=== PATIENT | female | born 1985 | race Caucasian/White ===

== ENCOUNTER → 2022-01-12 14:08 | Outpatient (CLI) | payer OTHER, SELFPAY ==
[2022-01-12 20:07] LABS: Urine N gonorrhoeae NOT DETECTED
[2022-01-12 20:10] LABS: Urine Chlamydia NOT DETECTED
== END ==
PROVIDERS: Visit Provider Obstetrics & Gynecology
DX: Z34.01 Encounter for supervision of normal first pregnancy, first trimester (principal)
CPT/HCPCS: 87491; 87591

== ENCOUNTER → 2022-01-25 11:47 | Outpatient (CLI) | payer OTHER, SELFPAY ==
[2022-01-25 12:42] LABS: Add Manual Diff / Slide Review NO; Basophils Absolute Auto 0 /uL (0-100); Basophils Percent Auto 0.4 % (0-2); Eosinophils Absolute Auto 0 /uL (0-450); Eosinophils Percent Auto 0.4 % (2-4); Hematocrit 37.5 % (36-46); Hemoglobin 12.9 g/dL (12.0-16.0); Lymphocytes Absolute Auto 1700 /uL (1100-4500); Lymphocytes Percent Auto 24.1 % (25-40); Mean Corpuscular HGB Conc 34.4 % (30-36); Mean Corpuscular Hemoglobin 31.7 PG (26-34); Mean Corpuscular Volume 92.2 fL (80-100); Monocytes Absolute Auto 300 /uL (0-900); Monocytes Percent Auto 4.1 % (3-14); Neutrophils Absolute Auto 5100 /uL (1500-7000); Platelet Count 257 X10^3/uL (150-400); Red Blood Cell Count 4.07 X10^6/uL (4.0-5.2); Red Cell Distribution Width 12.2 % (11.6-14.8); White Blood Cell Count 7.2 X10^3/uL (4.5-11.0)
[2022-01-25 13:58] LABS: Alanine Aminotransferase 25 IU/L (<35); Albumin 4.3 g/dL (3.5-5.0); Albumin Globulin Ratio 1.4 (1.0-2.8); Alkaline Phosphatase 45 U/L (38-126); Aspartate Aminotransferase 21 IU/L (14-36); BUN Creatinine Ratio 22.1 (6-22); Bilirubin Total 0.5 mg/dL (0.2-1.3); Blood Urea Nitrogen 15 mg/dL (7-17); Carbon Dioxide 25 mmol/L (22-32); Chloride 99 mmol/L (98-107); Estimated Glomerular Filt Rate > 60 mL/min (>60); Glucose 82 mg/dL (70-100); HEMOLYSIS < 15 (0-50); Lactate Dehydrogenase 388 U/L (313-618); Potassium 4.1 mmol/L (3.4-5.1); Sodium 131 mmol/L (137-145); Total Protein 7.3 g/dL (6.3-8.2); Uric Acid 3.4 mg/dL (2.5-6.2)
[2022-01-25 14:13] LABS: Appearance Urine UA CLEAR; Bilirubin Urine UA NEGATIVE (NEGATIVE); Color Urine UA YELLOW; Glucose Urine UA NEGATIVE (Negative); Ketones Urine UA NEGATIVE (NEGATIVE); Leukocyte Esterase Urine UA NEGATIVE (NEGATIVE); Nitrite Urine UA NEGATIVE (Negative); Occult Blood Urine UA TRACE-INTACT (Negative); Protein Urine UA NEGATIVE (Negative); Specific Gravity Urine UA <=1.005 (1.000-1.035); Urobilinogen Urine UA 0.2 E.U./dL (0.2)
[2022-01-25 14:19] LABS: pH Urine UA 6.5 (4.5-8.0)
[2022-01-25 15:23] LABS: Creatinine Urine Random 11.6 mg/dL; Protein (Total) Urine Random 11 mg/dL (0-12); Protein Creatinine Ratio Urine 0.94 GRAM/24H
[2022-01-25 15:47] LABS: Hepatitis B Surface Antigen NEGATIVE s/c (NEGATIVE)
[2022-01-25 15:48] LABS: Rubella Antibody IgG 92.6 IU/mL (>15)
[2022-01-25 15:57] LABS: HIV 1 & 2 Ab/Ag 4th Gen Combo NEGATIVE (NEGATIVE); Hep C Virus Ab w/Reflex Quant NEGATIVE s/c (NEGATIVE)
[2022-01-26 08:28] LABS: RPR Screen Non Reactive (Non Reactive); Varicella IgG Antibody 1892 index (Immune >165)
== END ==
PROVIDERS: PCP Nurse Practitioner Family; Referring Provider Obstetrics & Gynecology; Visit Provider Obstetrics & Gynecology
DX: O09.511 Supervision of elderly primigravida, first trimester (principal)
CPT/HCPCS: 36415; 80053; 80055; 81003; 82570; 83615; 84156; 84550; 86787; 86803; 86850; 86900; 86901; 87086; 87389

== ENCOUNTER → 2022-03-14 17:02 | Outpatient (CLI) | payer OTHER, SELFPAY ==
[2022-03-16 22:07] LABS: AFP Value 34.4 ng/mL (.); Gest Age on Col Date 17.6 weeks (.); Insulin Dep Diabetes No (.); OSBR Risk 1IN 10000 (.); Results Report (.); Test Results *Screen Negative* (.)
== END ==
PROVIDERS: Referring Provider Obstetrics & Gynecology; Visit Provider Obstetrics & Gynecology
DX: Z34.92 Encounter for supervision of normal pregnancy, unspecified, second trimester (principal)
CPT/HCPCS: 36415; 82105

== ENCOUNTER → 2022-04-03 07:46 | Outpatient (CLI) | payer OTHER, SELFPAY ==
--- NOTE | 2022-04-03 07:48 | DI.US.S_ITS ---
PROCEDURE: US OB >= 14 WEEKS FETUS INDICATIONS: ANATOMY OUTSIDE/PRIOR DATING DATA: Last menstrual period (LMP): Not applicable First dating scan (date and location): 01/12/2022 Estimated date of delivery (ZOE) from first dating scan: 08/17/2022 TECHNIQUE: Real-time scanning was performed of the fetus, with image documentation and biometric measurements. Endovaginal scanning: Not performed COMPARISON: [facility], US, US OB <= 14 WEEKS FETUS, 01/12/2022, 15:17. 01/12/2022 FINDINGS: General: A single living intrauterine gestation is present. Presentation: Vertex Placenta: Anterior, without previa Amniotic fluid index: 12.7 cm heart rate: 160 beats per minute Maternal cervical canal: 4.4 cm biometrics: Biparietal diameter: 5.2 cm Head circumference: 18.6 cm Abdominal circumference: 16.7 cm Femur length: 3.4 cm Clinically estimated gestational age: 20 weeks and 4 days Composite gestational age from present scan: 21 weeks and 2 days Estimated weight and percentile: 407 g, 79th percentile Anatomic survey: Neuro: Ventricles are non-dilated at less than 10 mm. Cisterna magna is normal at 3-11 mm. Cerebellum is normal in size and morphology. Nuchal skin fold: Normal at less than 6 mm between 14-21 weeks gestational age. Face: Nose and lips, facial profile are normal. Spine: No evidence for spina bifida. Heart: 4-chambered heart is present, with normal ventricular outflow tracts. Diaphragm: Diaphragm is intact. Stomach: Left-sided stomach is present. Kidneys: No hydronephrosis. Normal is less than 5 mm in 2nd trimester, less than 7 mm in 3rd trimester. Cord: 3-vessel cord has orthotopic insertion. Bladder: Normal in size. Extremities: All 4 extremities identified. IMPRESSION: Living intrauterine gestation at 20 weeks and 4 days by initial ultrasound. Biometry today is concordant, with EFW at the 79th percentile. Normal and complete routine anatomic survey. We strive to produce accurate, complete, and clear reports of imaging services. To assist us in improving patient care, this report was composed using standard report templates and voice recognition software. Therefore, it may contain abnormal punctuation, insertions and/or omissions. Occasional wrong-word or sound-alike substitutions may occur. Though we review the report and make efforts to correct it, we do recommend that the report be read carefully in proper context to recognize any text inaccuracies. Dictated by: Alberto Dumont M.D. on 04/03/2022 at 9:35 Approved by: Alberto Dumont M.D. on 04/03/2022 at 9:40
== END ==
PROVIDERS: Referring Provider Obstetrics & Gynecology; Visit Provider Obstetrics & Gynecology
DX: Z34.02 Encounter for supervision of normal first pregnancy, second trimester (principal); Z3A.20 20 weeks gestation of pregnancy
CPT/HCPCS: 76811

== ENCOUNTER → 2022-04-10 08:44 | Outpatient (CLI) | payer OTHER, SELFPAY | PROVIDERS: Referring Provider Obstetrics & Gynecology; Visit Provider Obstetrics & Gynecology | DX: O36.8390 Maternal care for abnormalities of the fetal heart rate or rhythm, unspecified trimester, not applicable or unspecified (principal) | CPT/HCPCS: 36415; 84443 ==

== ENCOUNTER 2022-04-24 17:24 | Outpatient (CLI) | payer OTHER, SELFPAY | END 2022-04-24 18:05 | disposition home or self-care (01) | LOC: OB 04-25 08:27 | PROVIDERS: Referring Provider Obstetrics & Gynecology; Visit Provider Obstetrics & Gynecology | DX: O36.8320 Maternal care for abnormalities of the fetal heart rate or rhythm, second trimester, not applicable or unspecified (principal); Z3A.23 23 weeks gestation of pregnancy | CPT/HCPCS: 59025; G0378; G0379 ==

== ENCOUNTER → 2022-05-23 10:39 | Outpatient (CLI) | payer OTHER, SELFPAY ==
[2022-05-23 13:44] LABS: Hematocrit 35.4 % (36-46); Hemoglobin 12.2 g/dL (12.0-16.0)
[2022-05-23 13:55] LABS: GTT (PREG) 1 Hour PP 50gm Dose 90 mg/dL (76-139)
== END ==
PROVIDERS: Referring Provider Obstetrics & Gynecology; Visit Provider Obstetrics & Gynecology
DX: Z34.02 Encounter for supervision of normal first pregnancy, second trimester (principal); Z3A.26 26 weeks gestation of pregnancy
CPT/HCPCS: 36415; 82950; 85014; 85018

== ENCOUNTER → 2022-06-20 08:54 | Outpatient (CLI) | payer OTHER, SELFPAY ==
--- NOTE | 2022-06-20 08:55 | DI.US.S_ITS ---
PROCEDURE: US OB FOLLOW UP INDICATIONS: EFW OUTSIDE/PRIOR DATING DATA: Last menstrual period (LMP): Unknown LMP-based estimated date of delivery (ZOE): Unknown First dating scan (date and location): 01/12/2022 Estimated date of delivery (ZOE) from first dating scan: 08/17/2022 The calculations are made using the ultrasound ZOE of 08/17/2022. TECHNIQUE: Real-time scanning was performed of the fetus, with image documentation and biometric measurements. Endovaginal scanning: Not performed. COMPARISON: [facility], , OB >= 14 WEEKS FETUS, 04/03/2022, 8:05. FINDINGS: General: A single living intrauterine gestation is present. Presentation: Vertex Placenta: Placental position is anterior, without previa. Amniotic fluid index: 21.5 cm, normal range is 5-24 cm. Single deepest vertical pocket is 7.2 cm. heart rate: 163 beats per minute. Maternal cervical canal: 3.1 cm long. Normal lower limit is 2.5 cm. biometrics: Biparietal diameter: 8.1 cm, 32 weeks 3 days Head circumference: 29.1 cm, 32 weeks 0 days Abdominal circumference: 29.3 cm, 33 weeks 2 days Femur length: 6.1 cm, 31 weeks 6 days Clinically estimated gestational age: 31 weeks 5 days Composite gestational age from present scan: 32 weeks 3 days Estimated weight and percentile: 2023 grams, 70th percentile for gestational age Other: Not applicable. IMPRESSION: 1. Single live intrauterine with appropriate interval growth. 2. Estimated weight is 2023 grams, 78th percentile for gestational age. 3. Amniotic fluid index is 21.5 cm. We strive to produce accurate, complete, and clear reports of imaging services. To assist us in improving patient care, this report was composed using standard report templates and voice recognition software. Therefore, it may contain abnormal punctuation, insertions and/or omissions. Occasional wrong-word or sound-alike substitutions may occur. Though we review the report and make efforts to correct it, we do recommend that the report be read carefully in proper context to recognize any text inaccuracies. Approved by: Cruz Grey M.D. on 06/20/2022 at 10:48
== END ==
PROVIDERS: Referring Provider Obstetrics & Gynecology; Visit Provider Obstetrics & Gynecology
DX: O09.523 Supervision of elderly multigravida, third trimester (principal); Z3A.32 32 weeks gestation of pregnancy
CPT/HCPCS: 76816

== ENCOUNTER 2022-07-09 15:08 | Inpatient (IN) | payer OTHER, SELFPAY ==
[2022-07-09 16:57] LABS: Appearance Urine UA CLEAR; Bilirubin Urine UA NEGATIVE (NEGATIVE); Color Urine UA YELLOW; Glucose Urine UA NEGATIVE (Negative); Ketones Urine UA NEGATIVE (NEGATIVE); Leukocyte Esterase Urine UA TRACE (NEGATIVE); Nitrite Urine UA NEGATIVE (Negative); Occult Blood Urine UA NEGATIVE (Negative); Protein Urine UA NEGATIVE (Negative); Specific Gravity Urine UA <=1.005 (1.000-1.035); Urobilinogen Urine UA 0.2 E.U./dL (0.2)
--- NOTE | 2022-07-09 17:09 | DI.US.S_ITS ---
PROCEDURE: US OB LIMITED INDICATIONS: FALL. EVALUATE PLACENTA. TECHNIQUE: Real-time scanning was performed of the fetus, with image documentation. COMPARISON: [facility], , OB FOLLOW UP, 06/20/2022, 8:58. FINDINGS: A single living intrauterine gestation is present. Presentation: Vertex. Placenta: Placental position is anterior, without previa. Amniotic fluid index: 15.8 cm, normal range is 5-24 cm. Single deepest vertical pocket is 6.8 cm. heart rate: 150 beats per minute. Maternal cervical canal: 2.6 cm long. Normal lower limit is 2.5 cm. The cervix has a complex fluid collection measuring 1.8 x 1.5 cm. Clinically estimated gestational age: 34 weeks 3 days IMPRESSION: 1. Single live intrauterine . 2. Amniotic fluid index is normal measuring 15.8 cm. 3. Heterogenous irregular complex fluid collection within the placenta to the left of the maternal umbilicus measuring 3.3 x 1.1 x 1.0 cm. Possibly placental lakes, however these were not previously present. Given history of trauma, must consider a placental hemorrhage. Recommend follow-up imaging. 4. The cervix measures 2.6 cm in length. There is a complex fluid collection measuring 1.8 x 1.5 x 1.0 cm not previously present. Given history of trauma, most consider hemorrhage. Recommend follow-up imaging. Dictated by: Jr Machado M.D. on 07/09/2022 at 19:09 Approved by: Jr Machado M.D. on 07/09/2022 at 19:16
[2022-07-09 17:27] LABS: Bacteria Urine None Seen; Culture Indicated Urine Cult Not Indicated; RBC Urine None Seen (0-5/HPF); Squamous Epithelial Cell Urine None Seen (0-5/HPF); WBC Urine 0-1/HPF (0-5/HPF)
--- NOTE | 2022-07-09 17:48 | P.TNLD_ITS ---
[facility] Medical History (Updated 02/11/22 @ 16:59 by Sonia Issa) Chicken pox (~1987) Eczema (~2014) Fractures (~1999) Shingles (~2003) Surgical History (Updated 02/11/22 @ 16:59 by Sonia Issa) Anesthesia H/O shoulder surgery (~2007) History of ankle surgery (~2012) History of knee surgery S/P ASA/PRK (advanced surface ablation photorefractive keratectomy) (~2017) [place] teeth extracted Family History (Updated 02/11/22 @ 17:00 by Sonia Issa) Mother Melanoma Squamous cell carcinoma Father Psoriatic arthritis Lupus Family/Other Diabetes mellitus Grandfather Glaucoma Diverticulitis Social History marital status: number of children: 0 household members: spouse lives independently: Yes housing: condominium pets and animals: Yes (1 dog ) education level: college occupational status: employed current occupational exposures/hazards: No special ev needs: No travel history: over 6 months ago seatbelt use: always water heater temp set < 120 deg: No (Will check and adjust ) working smoke detector in home: Yes fire extinguisher in home: No carbon monox detector in home: Yes firearms in home: No do you feel safe at home: Yes Smoking Status: Never smoker second hand exposure: No alcohol intake: former substance use type: does not use during the past year weight has: decreased > 10 lbs well-balanced diet: daily or most days daily servings fruits/ve-4 caffeine: No Type(s) of exercise: weight lifting and running frequency: 3-4 times per week Objective Labs Result Diagrams: 07/09/22 19:42 Labs: Laboratory Results - last 24 hr 07/09/22 16:14 Urine Color Yellow Urine Appearance Clear Urine pH 6.0 Ur Specific [place] <=1.005 Urine Protein Negative Urine Glucose (UA) Negative Urine Ketones Negative Urine Occult Blood Negative Urine Nitrate Negative Urine Bilirubin Negative Urine Urobilinogen 0.2 Ur Leukocyte Esterase Trace H Urine RBC None seen Urine WBC 0-1/hpf Ur Squamous Epith Cells None seen Urine Bacteria None seen Ur Culture Indicated? Cult not indicated
[2022-07-09 20:09] LABS: Hematocrit 35.7 % (36-46); Hemoglobin 12.2 g/dL (12.0-16.0); Mean Corpuscular HGB Conc 34.2 % (30-36); Mean Corpuscular Hemoglobin 32.3 PG (26-34); Mean Corpuscular Volume 94.4 fL (80-100); Platelet Count 207 X10^3/uL (150-400); Red Blood Cell Count 3.78 X10^6/uL (4.0-5.2); Red Cell Distribution Width 12.8 % (11.6-14.8); White Blood Cell Count 10.1 X10^3/uL (4.5-11.0)
[2022-07-09 20:19] LABS: Fibrinogen 445 mg/dL (211-428)
--- NOTE | 2022-07-09 21:44 | PM.OBHP.IH.1 ---
OB HPI Date/Time Date of admission: 07/09/22 Date Patient Seen: 07/09/22 Time Patient Seen: 17:50 History of Present Condition Chief complaint: FELL ZOE Calculator Estimated Delivery Date Method Current WG Current Estimate 08/18/22 LMP (Certain) 34w 2d Other Estimates 08/17/22 Ultrasound #1 34w 3d Estimated Gestational Age (weeks): 34 : 1 Para: 0 Narrative: 37 yo G1 female @ 34wk2d presents after a hard fall onto her abdomen. She was taking her young dog out for a walk when the dog pulled hard on the leash and she fell onto her right side and right abdomen. She also mildly twisted her ankle. She called the office and was brought in for evaluation. She reports some initial discomfort on the right side of her abdomen and uterus, which now esolved after her presentation here. No current abdominal pain. She does not feel any contractions. Denies Vaginal bleeding or leakage of fluid. She is feeling good movement. complicated by auscultating frequent ectopy, persistent from 21-23 weeks. She had MFM evaluation at which time no ectopy was present on NST. anatomy ultrasound by [facility] was normal. echocardiogram showed a small VSD, otherwise normal. Diagnosis was PACs. on follow-up visits initially only rare ectopic beats auscultated, then no further ectopy heard. Recommendation for the VSD was if a murmur was auscultated on exam post delivery, then referral to a climbing guide within 2-4 weeks. She has had growth ultrasounds due to advanced maternal age. EFW at 31 weeks was 70 percentile. She had a low risk cell free DNA, boy. care: good care Dating criteria OB: LMP confirmed by 1st trimester US Ultrasounds: normal 1st trimester US, normal mid trimester US and other (31 week US EFW 70%) Obstetrical complications: other ( HR ectopy, infrequent now, probable PACs on evaluation/ ECHO: small VSD) Medical complications OB: none Indications Indication for induction OB: other (s/p abdominal trauma. US with area possible blood, possible abruption) Preadmission Labs Last OB Lab Results: Blood Type A Positive 01/25/22 11:54 Antibody Screen Negative 01/25/22 11:54 Hematocrit 35.7 % (36-46) L 07/09/22 19:42 Hemoglobin 12.2 g/dL (12.0-16.0) 07/09/22 19:42 Hepatitis B Surface Antigen Negative s/c (NEGATIVE) 01/25/22 11:54 Hepatitis C Antibody Negative s/c (NEGATIVE) 01/25/22 11:54 Rubella Antibody 92.6 IU/mL (>15) 01/25/22 11:54 Varicella-Zoster IgG Antibody 1892 index (Immune >165) 01/25/22 11:54 Glucose 1 Hour 90 mg/dL (76-139) 05/23/22 11:03 -: Chlamydia screen: negative and Gonorrhea screen: negative -: PAP smear: Normal (12/2021) Genetic Screens: Cell-free DNA: Normal (low risk, boy) and Alpha-fetoprotein: Normal Evaluation Evaluation Baseline heart rate: 145 Variability: Moderate (11-25) monitor accelerations: Present Monitor Decelerations: Absent Contraction Frequency (minutes): 8 Uterine Contraction Intensity: Mild Category of Tracing: Reactive Status: Category l Comments: cervix on US 2.6cm long. Not checked on vaginal exam, pt not feeling contractions See OB US report [facility] Medical History Chicken pox (~1987) Eczema (~2014) Fractures (~1999) Shingles (~2003) Surgical History (Updated 02/11/22 @ 16:59 by Sonia Issa) Anesthesia H/O shoulder surgery (~2007) History of ankle surgery (~2012) History of knee surgery S/P ASA/PRK (advanced surface ablation photorefractive keratectomy) (~2017) [place] teeth extracted Family History (Updated 02/11/22 @ 17:00 by Sonia Issa) Mother Melanoma Squamous cell carcinoma Father Psoriatic arthritis Lupus Family/Other Diabetes mellitus Grandfather Glaucoma Diverticulitis Social History marital status: number of children: 0 household members: spouse lives independently: Yes housing: condominium pets and animals: Yes (1 dog ) education level: college occupational status: employed current occupational exposures/hazards: No special ev needs: No travel history: over 6 months ago seatbelt use: always water heater temp set < 120 deg: No (Will check and adjust ) working smoke detector in home: Yes fire extinguisher in home: No carbon monox detector in home: Yes firearms in home: No do you feel safe at home: Yes Smoking Status: Never smoker second hand exposure: No alcohol intake: former substance use type: does not use during the past year weight has: decreased > 10 lbs well-balanced diet: daily or most days daily servings fruits/ve-4 caffeine: No Type(s) of exercise: weight lifting and running frequency: 3-4 times per week Meds Home Medications and Allergies Home Medications Medication Instructions Recorded Confirmed Type prenat.vits,wily,nzs-hzch-gefea 1 tab PO DAILY 12/28/21 07/04/22 History Double Electric Breast Pump #1 ea 06/20/22 07/04/22 Rx Allergies Allergy/AdvReac Type Severity Reaction Status Date / Time No Known Drug Allergies Allergy Unverified 07/04/22 08:14 Review of Systems Constitutional Constitutional: Reports as per HPI OB Exam HENMT Head: normal to inspection Resp Effort & Inspection: normal respiratory effort and able to speak in complete sentences Cardio Rate: regular rate Extremities Lower extremity: Yes normal to inspection ( no edema, mildly tender left inner ankle near arch) GI Inspection: normal to inspection and no abdominal wall ecchymosis Palpation: Yes soft, No firm, No guarding, No tender and Yes other (uterus nontender) Objective Imaging OB US: Radiologist's impression: PROCEDURE:? US OB LIMITED ? INDICATIONS:? FALL. EVALUATE PLACENTA. ? TECHNIQUE: Real-time scanning was performed of the fetus, with image documentation.? ? COMPARISON:? [facility], OB FOLLOW UP, 06/20/2022, 8:58. ? FINDINGS:? A single living intrauterine gestation is present.? Presentation:? Vertex.? Placenta:? Placental position is anterior, without previa.? ? Amniotic fluid index:? 15.8 cm, normal range is 5-24 cm. Single deepest vertical pocket is 6.8 cm.? ? heart rate:? 150 beats per minute.? Maternal cervical canal:? 2.6 cm long.? Normal lower limit is 2.5 cm.? The cervix has a complex fluid collection measuring 1.8 x 1.5 cm. Clinically estimated gestational age:? 34 weeks 3 days ? ? IMPRESSION:? 1. Single live intrauterine . 2. Amniotic fluid index is normal measuring 15.8 cm. 3. Heterogenous irregular complex fluid collection within the placenta to the left of the maternal umbilicus measuring 3.3 x 1.1 x 1.0 cm.? Possibly placental lakes, however these were not previously present.? Given history of trauma, must consider a placental hemorrhage.? Recommend follow-up imaging. 4. The cervix measures 2.6 cm in length.? There is a complex fluid collection measuring 1.8 x 1.5 x 1.0 cm not previously present.? Given history of trauma, most consider hemorrhage.? Recommend follow-up imaging Labs Result Diagrams: 07/09/22 19:42 Labs: Laboratory Results - last 24 hr 07/09/22 07/09/22 07/09/22 16:14 19:42 19:42 WBC 10.1 RBC 3.78 L Hgb 12.2 Hct 35.7 L MCV 94.4 MCH 32.3 MCHC 34.2 RDW 12.8 Plt Count 207 Fibrinogen 445 H Urine Color Yellow Urine Appearance Clear Urine pH 6.0 Ur Specific [place] <=1.005 Urine Protein Negative Urine Glucose (UA) Negative Urine Ketones Negative Urine Occult Blood Negative Urine Nitrate Negative Urine Bilirubin Negative Urine Urobilinogen 0.2 Ur Leukocyte Esterase Trace H Urine RBC None seen Urine WBC 0-1/hpf Ur Squamous Epith Cells None seen Urine Bacteria None seen Ur Culture Indicated? Cult not indicated Assessment and Plan Assessment and Plan Assessment and Plan narrative: 37 yo G1 @ EGA 34wk2d status post fall with possible concealed abruption. Rh+ - US shows heterogeneous fluid collection within the placenta, possible placental hemorrhage. Ultrasound 3 weeks ago did not have this finding. Also fluid collection in the cervix consistent with possible hemorrhage. no other definitive signs of abruption at this time, but she is persisting with christie every 7-9 minutes. Initially on presentation she also had low-grade irritability every 1 minute, occasionally has low-grade irritability every 3-4 minutes. Contractions are not painful but are not resolving. No other suspicious signs, contractions are not painful, no abdominal tenderness, no vaginal bleeding. However with ultrasound and with contractions not resolving, concern for possible concealed partial abruption. - labs showed normal platelets, normal fibrinogen, no signs of a large abruption at this time. Plan: Recommend inpatient observation with EFM/toco for possible abruption. Recommend transfer to a hospital with availability of a nursery for 34 week infant, in case she progresses to symptomatic abruption. Could consider repeat ultrasound if contractions resolve. She agrees to transfer. Dr. Robyn Henley from [facility] agrees to accept transfer the patient.
[2022-07-09] MEDS: LACTATED RINGERS 500 ML 21 ML IV (22:22)
[2022-07-09 22:42] LABS: COVID19 -Nasal RAPID Negative (Negative)
[2022-07-09] MEDS: ACETAMINOPHEN 325 MG TABLET 650 MG PO (22:43)
== END 2022-07-09 23:15 | disposition home or self-care (01) | DRG 833 ==
PROVIDERS: Admitting Provider Obstetrics & Gynecology; Referring Provider Obstetrics & Gynecology; Visit Provider Obstetrics & Gynecology
DX: O45.93 Premature separation of placenta, unspecified, third trimester (principal); Z3A.34 34 weeks gestation of pregnancy; O09.523 Supervision of elderly multigravida, third trimester; W18.09XA Striking against other object with subsequent fall, initial encounter; Y93.K1 Activity, walking an animal; Z67.10 Type A blood, Rh positive; Z20.822 Contact with and (suspected) exposure to COVID-19
CPT/HCPCS: 59025; 59050; 76815; 76830; 81001; 85027; 85384; 87635; 99235; C9803; G0378; G0379

== ENCOUNTER 2022-07-18 09:16 | Outpatient (CLI) | payer OTHER, SELFPAY | END 2022-07-18 10:00 | disposition home or self-care (01) | LOC: LABOR 09:49 → OB 07-23 08:44 | PROVIDERS: Referring Provider Obstetrics & Gynecology; Visit Provider Obstetrics & Gynecology | DX: O09.513 Supervision of elderly primigravida, third trimester (principal); Z3A.35 35 weeks gestation of pregnancy | CPT/HCPCS: 59025; G0378; G0379 ==

== ENCOUNTER → 2022-07-25 08:05 | Outpatient (CLI) | payer OTHER, SELFPAY ==
[2022-07-26 11:31] LABS: Strep Grp B PCR POS for Grp B Strep
== END ==
PROVIDERS: Visit Provider Obstetrics & Gynecology
DX: Z34.03 Encounter for supervision of normal first pregnancy, third trimester (principal); Z3A.36 36 weeks gestation of pregnancy
CPT/HCPCS: 87653

== ENCOUNTER 2022-08-01 08:21 | Outpatient (CLI) | payer OTHER, SELFPAY | END 2022-08-01 09:53 | disposition home or self-care (01) | LOC: LABOR 08:34 → OB 08-02 16:05 | PROVIDERS: Referring Provider Obstetrics & Gynecology; Visit Provider Obstetrics & Gynecology | DX: O36.8130 Decreased fetal movements, third trimester, not applicable or unspecified (principal); Z3A.37 37 weeks gestation of pregnancy | CPT/HCPCS: 59025; G0378; G0379 ==

== ENCOUNTER 2022-08-13 18:49 | Inpatient (IN) | payer OTHER, SELFPAY ==
[2022-08-13 19:14] VITALS: BP 109/72
[2022-08-13] MEDS: DINOPROSTONE VAG (CERVIDIL) 10 MG VAG (20:26)
[2022-08-13 20:52] LABS: Add Manual Diff / Slide Review NO; Basophils Absolute Auto 0 /uL (0-100); Basophils Percent Auto 0.3 % (0-2); Eosinophils Absolute Auto 0 /uL (0-450); Eosinophils Percent Auto 0.4 % (2-4); Hematocrit 36.2 % (36-46); Hemoglobin 12.4 g/dL (12.0-16.0); Lymphocytes Absolute Auto 1900 /uL (1100-4500); Lymphocytes Percent Auto 18.3 % (25-40); Mean Corpuscular HGB Conc 34.4 % (30-36); Mean Corpuscular Hemoglobin 32.3 PG (26-34); Monocytes Absolute Auto 500 /uL (0-900); Monocytes Percent Auto 4.9 % (3-14); Neutrophils Absolute Auto 7900 /uL (1500-7000); Neutrophils Percent Auto 76.1 % (50-75); Platelet Count 223 X10^3/uL (150-400); Red Blood Cell Count 3.85 X10^6/uL (4.0-5.2); Red Cell Distribution Width 12.7 % (11.6-14.8); White Blood Cell Count 10.4 X10^3/uL (4.5-11.0)
[2022-08-13 21:41] LABS: COVID19 -Nasal RAPID Negative (Negative)
[2022-08-14] MEDS: miSOPROStoL 100 MCG TABLET 50 MCG PO ×3 (09:13→18:54)
--- NOTE | 2022-08-14 09:53 | P.HPOB_ITS ---
OB HPI Date/Time Date of admission: 08/13/22 Date Patient Seen: 08/14/22 Time Patient Seen: 08:35 History of Present Condition Chief complaint: ZOE Calculator Estimated Delivery Date Method Current WG Current Estimate 08/18/22 LMP (Certain) 39w 3d Other Estimates 08/17/22 Ultrasound #1 39w 4d Estimated Gestational Age (weeks): 39 : 1 Narrative: 37 yo G1 female being admit at 39 wks for induction of labor due to possible hematoma, small abruption in placenta s/p fall on abdomen at 34 weeks and for advanced maternal age. complicated by auscultating frequent ectopy,? persistent from 21-23 weeks. ? She had M evaluation at which time no ectopy present on NST in MFM office.? anatomy ultrasound by [facility] was normal.? echocardiogram showed a small VSD, otherwise normal cardiac anatomy.? Diagnosis was PACs.?On follow-up visits initially only rare ectopic beats auscultated, then no further ectopy heard.?On NSTs or monitoring for other reasons, occasional ectopy seen on EFM. Recommendation for the VSD was if a heart murmur?was auscultated on exam of the baby post delivery, then referral to a pediatric physical therapy assistant within 2-4 weeks. At 34 weeks the patient had a hard fall onto her abdomen, with abdominal discomfort. EFM/ toco showed frequent uterine irritability every 1 minutes and subsequent contractions every 7 minutes. Ultrasound showed 3.3 cm irregular fluid collection in left anterior placenta, possible placental arvizu but with not being seen 3 weeks prior and with a new 1.8 cm fluid collection near the cervix, could be possible hemorrhage, possible small abruption. Patient was observed > 24 hours and contractions did not become more frequent than every 7 minutes and were painless. She did not have any vaginal bleeding or leakage of fluid. She was discharged to home to return with any increased symptoms. Gradually her contractions did space. Follow-up ultrasound at 37 weeks showed stable area within the placenta, p ossible placental arvizu. Efw 83%, [place] 21. Ultrasounds: normal 1st trimester US, normal mid trimester US and abnormal US findings ( echo mid 2nd trimester showed small VSD. At 34 wks s/p fall on abdomen 3.3x1.1x1 cm irregular fluid collection anterior left placenta, possible placental lakes but not present 3 wks prior and 1.8 cm fluid collection near cervix, consider hemorrhage s/p fall) Obstetrical complications: other ( trauma to abdomen at 34 weeks as above. frequent ectopy as above, improved to occasional. Smal VSD) Medical complications OB: none Indications Indication for induction OB: other ( Possible small anterior placental abrupt ion status post fall; advanced maternal age) Preadmission Labs Last OB Lab Results: Blood Type A Positive 08/13/22 19:13 Antibody Screen Negative 08/13/22 19:13 Hematocrit 36.2 % (36-46) 08/13/22 23:59 Hemoglobin 12.4 g/dL (12.0-16.0) 08/13/22 23:59 Hepatitis B Surface Antigen Negative s/c (NEGATIVE) 01/25/22 11 :54 Hepatitis C Antibody Negative s/c (NEGATIVE) 01/25/22 11:54 Rubella Antibody 92.6 IU/mL (>15) 01/25/22 11:54 Varicella-Zoster IgG Antibody 1892 index (Immune >165) 01/25/22 11:54 Glucose 1 Hour 90 mg/dL (76-139) 05/23/22 11:03 Group B Streptococcus (PCR) Pos for grp b strep H 07/25/22 08:0 5 -: Chlamydia screen: negative and Gonorrhea screen: negative -: PAP smear: Normal (12/2021) Genetic Screens: Cell-free DNA: Normal and Alpha-fetoprotein: Normal Evaluation Evaluation Baseline heart rate: 130 Variability: Moderate (11-25) monitor accelerations: Present Monitor Decelerations: Absent Contraction Frequency (minutes): 10 Uterine Contraction Intensity: Mild Category of Tracing: Reactive Status: Category l Dilation (cm): 0 Effacement (%): 20 Dilation: Closed Effacement: 0-30% station: -3 Position of cervix: posterior Consistency: medium Garza score: 1 Comments: Cervidil removed. Cervix on placement last pm ftp/30% per RN exam, no change this am. Cervidil noted to be in distal 1/3 vagina on removal, not near cervix. COUNT INCLUDES THE [facility] Medical History Chicken pox (~1987) Eczema (~2014) Fractures (~1999) Shingles (~2003) Surgical History (Updated 02/11/22 @ 16:59 by Sonia Issa) Anesthesia H/O shoulder surgery (~2007) History of ankle surgery (~2012) History of knee surgery S/P ASA/PRK (advanced surface ablation photorefractive keratectomy) (~2017) [place] teeth extracted Family History (Updated 02/11/22 @ 17:00 by Sonia Issa) Mother Melanoma Squamous cell carcinoma Father Psoriatic arthritis Lupus Family/Other Diabetes mellitus Grandfather Glaucoma Diverticulitis Social History marital status: number of children: 0 household members: spouse lives independently: Yes housing: condominium pets and animals: Yes (1 dog ) education level: college occupational status: employed current occupational exposures/hazards: No special ev needs: No travel history: over 6 months ago seatbelt use: always water heater temp set < 120 deg: No (Will check and adjust ) working smoke detector in home: Yes fire extinguisher in home: No carbon monox detector in home: Yes firearms in home: No do you feel safe at home: Yes Smoking Status: Never smoker second hand exposure: No alcohol intake: former substance use type: does not use during the past year weight has: decreased > 10 lbs well-balanced diet: daily or most days daily servings fruits/ve-4 caffeine: No Type(s) of exercise: weight lifting and running frequency: 3-4 times per week Meds Home Medications and Allergies Home Medications Medication Instructions Recorded Confirmed Type prenat.vits,wily,qhv-yveo-fxxqk 1 tab PO DAILY 12/28/21 08/13/22 History Double Electric Breast Pump #1 ea 06/20/22 08/13/22 Rx Allergies Allergy/AdvReac Type Severity Reaction Status Date / Time No Known Drug Allergies Allergy Unverified 08/08/22 10:44 OB Exam HENMT Head: normal to inspection Eyes General: appearance normal, both eyes and all related structures Resp Effort & Inspection: normal respiratory effort and able to speak in complete sentences Cardio Rate: regular rate Extremities Lower extremity: Yes normal to inspection Objective Labs Result Diagrams: 08/13/22 Unknown Labs: Laboratory Results - last 24 hr 08/13/22 08/13/22 08/13/22 19:13 20:00 Unknown WBC 10.4 RBC 3.85 L Hgb 12.4 Hct 36.2 MCV 94.0 MCH 32.3 MCHC 34.4 RDW 12.7 Plt Count 223 Neut % (Auto) 76.1 H Lymph % (Auto) 18.3 L [place] % (Auto) 4.9 Eos % (Auto) 0.4 L Baso % (Auto) 0.3 Neut # (Auto) 7900 H Lymph # (Auto) 1900 [place] # (Auto) 500 Eos # (Auto) 0 Baso # (Auto) 0 SARS-CoV-2 (PCR) Negative Blood Type A Positive Antibody Screen Negative Assessment and Plan Assessment and Plan Assessment and Plan narrative: 39 wks3d EGA, IOL for h/o fall to abdomen at 34 weeks with possible small anterior abruption, placental hematoma and for AMA. -GBS+ -Fetus with small VSD on ECHO performed for HR ectopy, ectopy improved to rare. Plan: s/p Cervidil without any significant cervical change nor frequent contractions. Cervidil migrated overnight and was not near cervix. - discussed continuing with cervical ripening with Cytotec, she was agreeable to this. Cytotec 50 mcg by mouth every 4 hours ordered. First dose given at 0910. -GBS prophylaxis with labor or SROM - if heart murmur auscultated on baby after delivery, then baby will need a referral to be seen by pediatric physical therapy assistant as an outpatient 2-4 wks after delivery Time Spent with Patient Total time spent with greater than 50% in coordination of care (as documented) at patient's floor/unit and/or counseling patient:: 15-24 minutes
--- NOTE | 2022-08-14 18:45 | PM.OBPNLAB ---
Date/Time Date Patient Seen: 08/14/22 Time Patient Seen: 18:40 Pain Control Pain control: tolerating well Comments: Pt is 4 hours s/p second dose of Misoprostil 50 mcg. Feeling some contractions as mildly uncomfortable. Able to read a book through contractions. Pelvic Exam Dilation (cm): 1 Effacement (%): 50 station: -3 Amniotic membrane status: Intact Contractions Contraction frequency (min): 6 Contraction pattern: Irregular Contraction intensity: Mild Status status: Category l Heart Rate Baseline: 135 Monitor Accelerations: Present Monitor Decelerations: Absent Monitor Variability: Moderate Assessment and Plan Assessment: induction ongoing Plan: continuous present management Comments: -repeat Cytotec 50 mcg x 1 now to continue cervical ripening. Re-check cervix in 4 hours, suspect this may be last dose of misoprostil and that cervix may be more favorable in next few hours.
[2022-08-14] MEDS: LACTATED RINGERS 1,000 ML 100 ML IV (23:03)
--- NOTE | 2022-08-15 02:47 | PM.OBPNLAB ---
Date/Time Date Patient Seen: 08/15/22 Time Patient Seen: 02:47 Pain Control Pain control: tolerating well Comments: pt able to sleep through contractions Pelvic Exam Dilation (cm): 1 Effacement (%): 50 station: -3 Amniotic membrane status: Intact Contractions Pitocin rate (mU/min): 0 Contraction frequency (min): 3 Contraction pattern: Irregular Contraction phase: Resting Contraction intensity: Mild Status status: Category ll Heart Rate Baseline: 130 Monitor Accelerations: Present Monitor Decelerations: Late, Recurrent and Variable Monitor Variability: Moderate Comments: FHR with repetitive decelerations, some recurrent late decelerations and other decelerations appeared more variable in nature. Several decelerations severe to 90. After IV fluids and position change, currently decelerations are no longer repetitive and only occasionally severe deceleration. Assessment and Plan Assessment: other Plan: Comments: Cat 2 EFM Recommend proceeding with section for delivery due to persistent repetitive decelerations, intermittent severe decelerations remote from delivery. Decelerations not improved enough after IV fluids and position change. Patient's agrees to proceeding with . I reviewed the procedure. Discussed risk of the surgery including bleeding, infection, injury to internal organs including bowel, bladder, ureters and large blood vessels and risk of injury to the baby. Verbal and written consent obtained. OR team and anesthesia called in.
[2022-08-15] MEDS: CITRIC ACID/SODIUM CITRATE 15 ML SOLUTION 30 ML PO (03:04)
[2022-08-15] MEDS: CEFAZOLIN 2 GM/100 ML PREMIX 100 ML IV (03:26)
--- NOTE | 2022-08-15 03:35 | PM.PREOP ---
Pre-operative Note COVID-19 COVID-19 status: Negative Result date/Date tested (Pos, Neg/Pending): 08/14/22 Criteria for continued procedure: Non-surgical alternatives not available or appropriate per current SOC Interval Note History & Physical reviewed/Exam performed by Physician: Yes Changes to H&P: No
--- NOTE | 2022-08-15 03:57 | SUR.OPER ---
Supine on Padded OR bed, head on pillow, safety belt at thigh, arms secured on padded arm boards at <90 degrees abduction. Bump under right buttock. Legs uncrossed with pillow under knees, gel pad to heels, tape over blanket to lower legs.
--- NOTE | 2022-08-15 04:21 | SUR.OPER ---
heart tones prior to incision 150, viable baby boy born at 0403, placenta delivered at 0406, 9/, cord blood and placenta sent to OB with OB RN
[2022-08-15] MEDS: LACTATED RINGERS 1,000 ML 100 ML IV ×2 (04:24→08:15)
--- NOTE | 2022-08-15 04:53 | PM.PROC.1 ---
Procedures Date/Time Date of procedure: 08/15/22 Time of procedure: 04:03 General Procedure description: Electrical Equipment Technician Documentation I assisted the OB conveyor installer in the section for this patient. My responsibilities included retracting and suctioning, providing fundal pressure during delivery and following with suture during closure. Please see the OB's note for details of the surgery.
[2022-08-15 05:11] VITALS: BP 93/63; PULSE 61; RESP 12; TEMP 36.5; O2SAT 98
--- NOTE | 2022-08-15 05:15 | P.OP_ITS ---
Operative Date/Time/Diagnoses Date of procedure: 08/15/22 Time of procedure: 04:30 Pre-op diagnosis: Non reassuring FHR pattern with recurrent moderate to severe variable decelerations remote from delivery Post-op diagnosis: same Procedure & Clinicians Procedure: Primary lower transverse section Same procedure as scheduled: Yes Indications: Edilma is a 37 yo G1 female @39 week who underwent induction of labor for possible small placental abruption or placental hematoma s/p a fall and advanced maternal age. She developed regular contractions after Cytotec for cervical ripening. As the contractions became stronger, the heart rate developed intermittent moderate to severe variable decelerations, repetitive at times. Her cervix was only 1 cm/ 50%. She was consented to proceeding with section due to frequent significant decelerations remote from delivery. Surgeon: Latoya Alston Click Yes if Unassisted: No Pharmaceutical Botanist: Laila Manzo Reason for Pharmaceutical Botanist: No OR staff surgical nurse practitioner available. Pharmaceutical Botanist was needed for retraction for surgical visualization, and assistance with delivery of the infant with giving fundal pressure. Anesthesia Type: Spinal Operative Notes Findings: A viable baby Boy delivered from the vertex presentation. No nuchal cord noted. Normal maternal uterus and bilateral tubes and ovaries Closure Type: primary Specimen(s): cord blood and cord pH (normal arterical and venous umbilical cord ph) Intraoperative meds administered: Pitocin Applied: Catheter Estimated Blood Loss (mL): 500 Blood products transfused: none Procedure in detail: Description of procedure: She was transferred from the center to the operating room. After an ad equate level of spinal anesthesia was obtained, she was placed in the supine position, Mccall catheter was placed and she was prepped and draped in routine sterile fashion. heart date was auscultated and was normal. Testing with an Allis clamp revealed the anesthesia level to be adequate. A Pfannenstiel skin incision was made in the lower abdomen and carried down to the level of the fascia. The fascia was incised in the midline and was bluntly extended transversely. The superior and inferior edges of the fascia were elevated and dissected off the rectus muscles with sharp and blunt dissection. The muscles were bluntly in the midline. The parietal peritoneum was elevated, incised and extended bluntly. The bladder blade was placed. The visceral peritoneum was elevated off the lower uterus, incised and the bladder flap was bluntly created. The bladder blade retractor was placed. A transverse incision was made in the lower uterus and the incision was extended transversely with blunt dissection. Clear fluid was noted. The 's head was elevated to and delivered through the uterine incision with some minimal fundal pressure. Infant was in the OA position. Anterior and posterior shoulders followed by the body were delivered without difficulty. The infant cried spontaneously. Cord was clamped and cut and the was handed off to respiratory therapy who was present for delivery. Cord blood was obtained a specimen. The placenta delivered with cord traction and uterine massage. It appeared intact with a normal three-vessel cord. The uterus was brought through the abdominal incision and swept clean of clots membranes. The uterine incision was closed in 2 layers with 0 Vicryl, the 1st layer being in running locking continuous fashion and the 2nd layer being in a vertical imbricating type fashion. There was some persistent light bleeding near the midline which was controlled with a [id number] suture of 0 Vicryl. Hemostasis was noted. The tubes and ovaries were inspected and noted to be normal. Posterior to the uterus was suctioned of some fluid and blood. The uterus was placed back into the maternal abdomen. The paracolic gutters were inspected and wiped of some minimal blood and fluid. The anterior cul-de-sac was inspected and some clot was removed. The uterine incision was re- inspected and good hemostasis was noted. The abdomen was closed. The The edges of the parietal peritoneum was grasped and it was reapproximated with 3-0 Vicryl suture. The fascia was closed with running continuous suture of 0 Vicryl. The subcutaneous tissue was reapproximated by reapproximating Delonte's fascia with 3-0 Vicryl.The skin was closed with a subcuticular suture of 4 0 Monocryl. Steri-Strips and sterile Aquacel dressing was placed. She tolerated the procedure well and went to the recovery room in stable condition. Complications: none Baby 1: Infant Gender: Male Presentation: vertex Position: Right Occiput Anterior Placental Delivery Description: Expressed Cord Vessel Description: 3 Vessels score (1 min): 9 score (5 min): 9 weight: 8 lb 3.537 oz Post-operative Condition: stable Disposition: PACU Aftercare: routine postop
[2022-08-15 05:16] VITALS: BP 93/60; PULSE 59; RESP 14; O2SAT 98
[2022-08-15 05:21] VITALS: BP 96/64; PULSE 59; RESP 12; TEMP 36.2; O2SAT 98
[2022-08-15 05:25] VITALS: BP 96/60; PULSE 58; RESP 19; TEMP 36.3; O2SAT 99
[2022-08-15] MEDS: ONDANSETRON 4 MG/2 ML INJ IV (07:48)
[2022-08-15 08:00] VITALS: BP 103/71; PULSE 81; RESP 18; TEMP 37.1
[2022-08-15] MEDS: diphenhydrAMINE 50 MG/ML VIAL 25 MG IV (08:49)
[2022-08-15] MEDS: KETOROLAC 30 MG/ML VIAL IV ×3 (11:09→23:49)
[2022-08-15] MEDS: DOCUSATE 100 MG CAPSULE 200 MG PO (11:10)
[2022-08-15] MEDS: ACETAMINOPHEN 325 MG TABLET 650 MG PO ×2 (17:11→23:50)
[2022-08-16] MEDS: ACETAMINOPHEN 325 MG TABLET 650 MG PO ×2 (05:34→12:06)
[2022-08-16] MEDS: IBUPROFEN 600 MG TABLET PO ×2 (05:43→12:05)
[2022-08-16 06:31] LABS: Add Manual Diff / Slide Review NO; Basophils Absolute Auto 0 /uL (0-100); Basophils Percent Auto 0.2 % (0-2); Eosinophils Absolute Auto 100 /uL (0-450); Eosinophils Percent Auto 0.5 % (2-4); Hemoglobin 9.5 g/dL (12.0-16.0); Lymphocytes Absolute Auto 1900 /uL (1100-4500); Lymphocytes Percent Auto 17.3 % (25-40); Mean Corpuscular HGB Conc 34.1 % (30-36); Mean Corpuscular Hemoglobin 31.9 PG (26-34); Mean Corpuscular Volume 93.4 fL (80-100); Monocytes Absolute Auto 500 /uL (0-900); Monocytes Percent Auto 4.3 % (3-14); Neutrophils Absolute Auto 8600 /uL (1500-7000); Neutrophils Percent Auto 77.7 % (50-75); Platelet Count 156 X10^3/uL (150-400); Red Blood Cell Count 2.99 X10^6/uL (4.0-5.2); Red Cell Distribution Width 12.8 % (11.6-14.8); White Blood Cell Count 11.1 X10^3/uL (4.5-11.0)
[2022-08-16] MEDS: DOCUSATE 100 MG CAPSULE 200 MG PO (12:05)
--- NOTE | 2022-08-16 13:59 | P.DS_ITS ---
Discharge Providers Provider Date of admission: 08/13/22 18:49 Discharge Date: 08/16/22 Primary care physician: Shawn CABRERA Provider Consults: 08/15/22 05:47 Consult to Pyroglazer Routine Comment: Discharge provider: Latoya Alston MD Summary Hospital Course Date Patient Seen: 08/16/22 Time Patient Seen: 13:00 Diagnoses: 39 week , delivered Nonreassuring heart rate pattern remote from delivery Status post primary lower transverse section Hospital Course: Edilma is a 37 yo G1 female @39 week who underwent induction of labor for possible small placental abruption or placental hematoma s/p a fall and for advanced maternal age.? She developed regular contractions after Cytotec for cervical ripening. As the contractions became stronger, the heart rate developed intermittent moderate to severe variable decelerations, repetitive at times.? Her cervix was only 1 cm/ 50%. She was consented to? proceeding with section due to frequent significant decelerations remote from delivery. She has had a normal course. Her post hemoglobin dropped to 9.5, She did have a little heavier bleeding upon incision in the uterus for uterine entry, with some vascularity noted. Placenta had been noted to be attach to mid uterus anterior uterine wall. Bleeding after baby delivered was within normal range. She reports today on postoperative day 1 that she is doing well. She is ambulating without problems. She has voided. She is tolerating a regular diet and passing gas. She is without problems. Incisional discomfort is well controlled with currently only Tylenol ibuprofen, but she will take an Rx for oxycodone in case needed after the Dura morph further wears off. She is feeling well and desires discharge to home. The baby is doing well. Due to some frequent ectopy, which later improved, the baby had had a echocardiogram during which showed a small VSD. Patient reports no heart murmur has been audible by the radio repairer domestic, thus baby will not need any follow-up as per original recommendations from the echo. She will be discharged to home with follow-up appointment in 1 week for Aquacel removal. Peripartum Data Delivery Method: Section Laceration Description: None Episiotomy description: None complications: none 1: Gender: Male Disposition of : home Status at Discharge Cognitive/behavioral status at discharge: oriented Functional status at discharge: independent ambulation Overall status at discharge: patient is progressing back to baseline Time Spent with Patient Time attestation: Total time spent providing and/or coordinating discharge services: Time spent: Less than 30 minutes Objective Labs Result Diagrams: 08/16/22 06:15 Labs: Laboratory Results - last 24 hr 08/16/22 06:15 WBC 11.1 H RBC 2.99 L Hgb 9.5 L Hct 28.0 L MCV 93.4 MCH 31.9 MCHC 34.1 RDW 12.8 Plt Count 156 Neut % (Auto) 77.7 H Lymph % (Auto) 17.3 L [place] % (Auto) 4.3 Eos % (Auto) 0.5 L Baso % (Auto) 0.2 Neut # (Auto) 8600 H Lymph # (Auto) 1900 [place] # (Auto) 500 Eos # (Auto) 100 Baso # (Auto) 0 Exam Vital Signs (past 8 hours): Oxygen Delivery Method Room Air Narrative Exam Narrative: General: Well-appearing female in no acute distress Abdomen: Soft, nontender except expected garfield-incisional tenderness, nondistended. Dressing: dry, intact with small focal old blood stain area, marked without change Fundus U-1 firm, nontender Extremities: Trace pedal edema Discharge Plan Discharge Plan Patient Disposition: Home Provider Discharge Comment: Congratulations on the of your son! You had section for delivery. You may use kauc-rxc-ekxogik Tylenol (acetaminophen) for pain, to supplement the prescription strength ibuprofen and oxycodone. Use a stool softener such as Colace daily while you are taking the oxycodone, as well as if needed for hard stools while taking extra iron. Discharge orders & Medications Prescriptions: New ibuprofen 600 mg Tablet 600 mg PO Q6HR PRN (Reason: Fever/Mild Pain (1-3)) Qty: 60 1RF ferrous sulfate 325 mg (65 mg iron) tablet 325 mg PO DAILY Qty: 30 0RF oxycodone 5 mg tablet 5 mg PO Q6HR PRN (Reason: pain) Qty: 14 0RF Continued prenat.vits,wily,xkh-cysj-tydle Tablet 1 tab PO DAILY No Action (DME) Double Electric Breast Pump See Rx Instructions .Route .MEDSUPPLY Qty: 1 0RF Rx Instructions: With supplies Follow up/Referrals: Latoya Alston MD [Physician] - (Appointment with on August, check in time 2:15pm and a 6 week appointment with on , 9:45am check in.) Provider,Shawn CABRERA [Primary Care Provider] - Discharge Health Status Multidrug resistant organism: No MDRO Diet/Activity/Treatments Diet: Regular Activity: No heavy lifting for 6 weeks. No driving for 2 weeks or while taking oxycodone. Nothing in the vagina for 6 weeks, including no tampons and no intercourse. Skin/Wound/Dressing Care Report to your healthcare provider any signs of infection, such as:: chills, fever, unusual drainage and unusual redness Visit Report/Discharge Packet Instructions: DI for Discharge Data Primary Care Provider: ProviderShawn
== END 2022-08-16 15:59 | disposition home or self-care (01) | DRG 786 ==
PROVIDERS: Admitting Provider Obstetrics & Gynecology; Referring Provider Obstetrics & Gynecology; Visit Provider Obstetrics & Gynecology
PROC: 10D00Z1 Extraction of Products of Conception, Low, Open Approach (ICD-10-PCS; CPT 59514; principal; 2022-08-15 04:30)
DX: O76 Abnormality in fetal heart rate and rhythm complicating labor and delivery (principal); O45.93 Premature separation of placenta, unspecified, third trimester; Z3A.39 39 weeks gestation of pregnancy; Z37.0 Single live birth; W19.XXXA Unspecified fall, initial encounter; O99.824 Streptococcus B carrier state complicating childbirth; Z20.822 Contact with and (suspected) exposure to COVID-19
CPT/HCPCS: 36415; 59050; 59510; 85025; 86850; 86900; 86901; 87635; C9803; G0379; J0690; J1200; J1885; J2274; J2405; J3010